=== PATIENT | female | born 1960 | race Caucasian/White ===

== ENCOUNTER 2019-08-12 13:46 | Emergency (ER) | payer MEDICARE ==
[~2019-08-12] VITALS: Ht 162.6 cm; Wt 96.3 kg
[~2019-08-12 13:46] MED LIST: ACET-2119 PO; HYDR-4353 PO; NAPR220T67 PO
[2019-08-12 14:02] VITALS: BP 125/77
== END 2019-08-12 15:59 | disposition left against medical advice (07) ==
LOC: ER 13:47
DX: J02.9 Acute pharyngitis, unspecified (principal); R11.2 Nausea with vomiting, unspecified; R05 Cough; R51 Headache; Z53.21 Procedure and treatment not carried out due to patient leaving prior to being seen by health care provider